=== PATIENT | female | born 1970 | race Two or more races ===

== ENCOUNTER 2018-09-20 11:49 | Emergency (ER) | payer OTHER ==
[~2018-09-20] VITALS: Ht 157.5 cm; Wt 82.1 kg
[2018-09-20] MEDS ORDERED: OLANZAPINE 10 MG VIAL IM ONE ×2 (11:53→12:00)
[2018-09-20 12:01] VITALS: BP 132/84
== END 2018-09-20 12:11 ==
LOC: ER 11:49
DX: F15.90 Other stimulant use, unspecified, uncomplicated (principal); R45.1 Restlessness and agitation
CPT/HCPCS: 96372; 99283; J3490